=== PATIENT | female | born 1960 | race Caucasian/White ===

== ENCOUNTER 2018-02-16 07:54 | Inpatient (IN) | payer OTHER ==
[~2018-02-16] VITALS: Ht 162.6 cm; Wt 71.4 kg
[~2018-02-16 07:54] MED LIST: ACET-66 PO; ASCO500 PO; BACITRACIN 50,000 UNITS/VIAL ONE; BUPIVACAINE HCL/PF 0.5% 30 ML VIAL ONE; BUPIVACAINE LIPOSOME/PF 1.3%-13.3MG/ML SUSPENSION 20 ML VIAL INJ ONE; MULT-1291 PO; RINGERS SOLUTION,LACTATED 1,000 ML IV ONE; SENN8.6T52 PO; SODIUM CHLORIDE 0.9% 10 ML ONE; SODIUM CL IRRIG SOLN BAG 3,000 ML IRRIG ONE; TRANEXAMIC ACID 1,000 MG in DEXTROSE 5%-WATER 50 ML IV ONE; TURM500C4 PO; VITA150T PO
[2018-02-16] MEDS ORDERED: SODIUM CHLORIDE 0.9% 100 ML ONE (08:15)
[2018-02-16] MEDS ORDERED: PROPOFOL 1000 MG/ISO-OSM 100 ML IV ONE (08:19)
[2018-02-16] MEDS ORDERED: ROPIVACAINE HCL/PF 0.2% 100 ML ED ONE (08:19)
[2018-02-16] MEDS ORDERED: RINGERS SOLUTION,LACTATED 1,000 ML IV ONE ×2 (08:30→11:00)
[2018-02-16] MEDS ORDERED: ACETAMINOPHEN 1000 MG/ISO-OSM 100 ML IV ONE ×2 (08:45→12:07)
[2018-02-16] MEDS ORDERED: KETOROLAC TROMETHAMINE 30 MG/ML VIAL IVP PRN (08:45)
[2018-02-16] MEDS ORDERED: NALOXONE HCL 1 MG/ML 2 ML SYG IVP PRN (08:45)
[2018-02-16] MEDS ORDERED: METOCLOPRAMIDE HCL 5 MG/ML 2 ML VIAL IVP PRN (08:45)
[2018-02-16] MEDS ORDERED: MIDAZOLAM HCL 2 MG/2 ML VIAL IVP PRN (08:45)
[2018-02-16] MEDS ORDERED: FentaNYL CITRATE-PF 100 MCG/2 ML VIAL IVP PRN ×3 (08:45)
[2018-02-16] MEDS ORDERED: HYDROmorphone 2 MG/ML SYRINGE IVP PRN ×3 (08:45→16:15)
[2018-02-16] MEDS ORDERED: MEPERIDINE HCL/PF 25 MG/0.5 ML AMP IVP PRN (08:45)
[2018-02-16] MEDS ORDERED: ONDANSETRON HCL 4 MG/2 ML VIAL IVP PRN ×2 (08:45→09:45)
[2018-02-16] MEDS ORDERED: SODIUM CHLORIDE 0.45% 1,000 ML IV SCH (09:35)
[2018-02-16] MEDS ORDERED: BENZOCAINE/MENTHOL LOZENGE PO PRN (09:45)
[2018-02-16] MEDS ORDERED: MAG HYDROX/AL HYDROX/SIMETH 30 ML SUSP UDCUP PO PRN (09:45)
[2018-02-16] MEDS ORDERED: DiphenhydrAMINE HCL 50 MG/ML VIAL IVP PRN (09:45)
[2018-02-16] MEDS ORDERED: BISACODYL 10 MG RECTAL RECTAL SUPPOSITORY PR PRN (09:45)
[2018-02-16] MEDS ORDERED: MIDAZOLAM HCL 2 MG/2 ML VIAL IVP ONE (12:00)
[2018-02-16] MEDS ORDERED: MEPERIDINE HCL/PF 25 MG/0.5 ML AMP ONE (12:07)
[2018-02-16 13:24] VITALS: BP 114/76
[2018-02-16 15:36] VITALS: BP 109/76
[2018-02-16] MEDS: CeFAZolin 1 GM/DEXTROSE 50 ML IV SCH (17:00)
[2018-02-16] MEDS: ACETAMINOPHEN 1000 MG/ISO-OSM 100 ML IV SCH (18:14)
[2018-02-16 19:28] VITALS: BP 106/74
[2018-02-16] MEDS ORDERED: OXYGEN THERAPY IH SCH (20:00)
[2018-02-16] MEDS: CELECOXIB 100 MG CAPSULE PO SCH (20:30)
[2018-02-16] MEDS: DOCUSATE SODIUM 100 MG CAPSULE PO SCH (20:31)
[2018-02-16] MEDS: CYCLOBENZAPRINE HCL 10 MG TABLET PO SCH (20:31)
[2018-02-16 23:15] VITALS: BP 107/76
[2018-02-17] MEDS: ACETAMINOPHEN 1000 MG/ISO-OSM 100 ML IV SCH ×3 (00:26→12:38)
[2018-02-17] MEDS: CeFAZolin 1 GM/DEXTROSE 50 ML IV SCH (02:16)
[2018-02-17 03:47] VITALS: BP 128/91
[2018-02-17 06:27] LABS: BASOPHILS % (AUTO) 0.1 % (0.0-2.0); EOSINOPHILS % (AUTO) 0.1 % (1.0-6.0); HEMATOCRIT 36.2 % (36-46); HEMOGLOBIN 12.7 g/dL (12.0-16.0); LYMPHOCYTES # (AUTO) 1.2 K/uL (1.0-4.8); LYMPHOCYTES % (AUTO) 11.6 % (22.0-44.0); MEAN CORPUSCULAR HEMOGLOBIN 31.1 pg (26.0-34.0); MEAN CORPUSCULAR HGB CONC 35.1 G/dL (31.0-37.0); MEAN CORPUSCULAR VOLUME 89 fL (80-100); MONOCYTES % (AUTO) 9.3 % (2.0-9.0); NEUTROPHILS # (AUTO) 8.1 K/uL (1.8-7.7); NEUTROPHILS % (AUTO) 78.9 % (40.0-70.0); PLATELET COUNT (AUTO) 227 K/uL (150-450); RED BLOOD CELL COUNT(AUTO) 4.08 MIL/uL (4.00-5.20); RED CELL DISTRIBUTION WIDTH 13.4 % (11.5-14.5)
[2018-02-17 06:54] LABS: ANION GAP 7 mmol/L (8-16); CARBON DIOXIDE 27 mmol/L (22-29); CHLORIDE 99 mmol/L (98-107); POTASSIUM 3.5 mmol/L (3.5-5.1); SODIUM SERUM 133 mmol/L (136-145); UREA NITROGEN, BLOOD 8 mg/dL (7-18)
[2018-02-17 07:04] LABS: CALCIUM, TOTAL 8.2 mg/dL (8.8-10.5); CREATININE 0.58 mg/dL (0.60-1.30); GLOMERULAR FILTR. RATE CALC > 60 mL/min (>60); GLUCOSE,RANDOM 132 mg/dL (70-110)
[2018-02-17 07:19] VITALS: BP 127/79
[2018-02-17] MEDS: DOCUSATE SODIUM 100 MG CAPSULE PO SCH ×2 (09:09→20:08)
[2018-02-17] MEDS: CELECOXIB 100 MG CAPSULE PO SCH ×2 (09:09→20:08)
[2018-02-17] MEDS: CYCLOBENZAPRINE HCL 10 MG TABLET PO SCH ×3 (09:09→20:08)
[2018-02-17] MEDS ORDERED: RIVAROXABAN 10 MG TABLET PO SCH ×3 (11:00→17:30)
[2018-02-17 11:45] VITALS: BP 122/80
[2018-02-17] MEDS ORDERED: SODIUM CHLORIDE 0.9% 250 ML IV ONE (12:35)
[2018-02-17 15:28] VITALS: BP 143/86
[2018-02-17 19:41] VITALS: BP 138/77
[2018-02-17] MEDS: OxyCODONE HCL/ACETAMINOPHEN 10-325 MG TABLET PO PRN (20:10)
[2018-02-17 23:23] VITALS: BP 115/75
[2018-02-18 03:22] VITALS: BP 118/64
[2018-02-18 06:26] LABS: BASOPHILS % (AUTO) 0.2 % (0.0-2.0); EOSINOPHILS % (AUTO) 0.2 % (1.0-6.0); HEMATOCRIT 36.1 % (36-46); HEMOGLOBIN 12.6 g/dL (12.0-16.0); LYMPHOCYTES # (AUTO) 1.4 K/uL (1.0-4.8); LYMPHOCYTES % (AUTO) 15.6 % (22.0-44.0); MEAN CORPUSCULAR HEMOGLOBIN 31.2 pg (26.0-34.0); MEAN CORPUSCULAR HGB CONC 34.8 G/dL (31.0-37.0); MEAN CORPUSCULAR VOLUME 90 fL (80-100); MONOCYTES % (AUTO) 11.1 % (2.0-9.0); NEUTROPHILS # (AUTO) 6.7 K/uL (1.8-7.7); NEUTROPHILS % (AUTO) 72.9 % (40.0-70.0); PLATELET COUNT (AUTO) 227 K/uL (150-450); RED BLOOD CELL COUNT(AUTO) 4.03 MIL/uL (4.00-5.20); RED CELL DISTRIBUTION WIDTH 13.7 % (11.5-14.5)
[2018-02-18 06:54] LABS: ANION GAP 7 mmol/L (8-16); CALCIUM, TOTAL 8.7 mg/dL (8.8-10.5); CARBON DIOXIDE 29 mmol/L (22-29); CHLORIDE 102 mmol/L (98-107); CREATININE 0.69 mg/dL (0.60-1.30); GLOMERULAR FILTR. RATE CALC > 60 mL/min (>60); GLUCOSE,RANDOM 115 mg/dL (70-110); POTASSIUM 3.7 mmol/L (3.5-5.1); SODIUM SERUM 138 mmol/L (136-145); UREA NITROGEN, BLOOD 3 mg/dL (7-18)
[2018-02-18 07:53] VITALS: BP 124/81
[2018-02-18] MEDS: CYCLOBENZAPRINE HCL 10 MG TABLET PO SCH (08:39)
[2018-02-18] MEDS: OxyCODONE HCL/ACETAMINOPHEN 10-325 MG TABLET PO PRN (08:39)
[2018-02-18] MEDS: DOCUSATE SODIUM 100 MG CAPSULE PO SCH (08:40)
[2018-02-18] MEDS: CELECOXIB 100 MG CAPSULE PO SCH (08:40)
[2018-02-18 12:00] VITALS: BP 107/77
[2018-02-18] MEDS ORDERED: PERCT PO (13:10)
[2018-02-18] MEDS ORDERED: RIVA10 PO (13:11)
== END 2018-02-18 14:36 | disposition home health service (06) | DRG 302 ==
LOC: 4E 07:54
PROVIDERS: ADMIT Orthopaedic Surgery; ATTEND Orthopaedic Surgery
PROC: 3E0T3BZ Introduction of Anesthetic Agent into Peripheral Nerves and Plexi, Percutaneous Approach (ICD-10-PCS; 2018-02-16)
PROC: 0SRC0J9 Replacement of Right Knee Joint with Synthetic Substitute, Cemented, Open Approach (ICD-10-PCS; principal; 2018-02-16 10:00)
DX: M17.11 Unilateral primary osteoarthritis, right knee (principal); E87.1 Hypo-osmolality and hyponatremia; K59.09 Other constipation
CPT/HCPCS: 87081; 88300; 97110; 97116; 97162; 97165; 97530; 97535; C9290; G0238; J0131; J0690; J1170; J1200; J2250; J2704; J2795; J3490; J7050; J7060; J7120